=== PATIENT | female | born 1985 | race African-American/Black ===

== ENCOUNTER 2021-10-28 18:14 | Inpatient (IN) | payer SELFPAY ==
[2021-10-28] MEDS ORDERED: Ondansetron PF 4 MG/2 ML Vial IVP PRN (18:39)
[2021-10-28] MEDS ORDERED: Acetaminophen 325 MG TAB PO PRN (18:39)
[2021-10-28] MEDS: hydrALAZINE 25 MG TAB PO SCH (19:34)
[2021-10-28] MEDS: niCARdipine 25 MG in Sodium Chloride 0.9% 250 ML 250 ML IVPB PRN ×2 (19:34→23:11)
[2021-10-28] MEDS: Famotidine 20 MG TAB PO SCH (19:34)
[2021-10-28] MEDS: Metoprolol Tartrate 50 MG TAB PO SCH (19:34)
[2021-10-29] MEDS: niCARdipine 25 MG in Sodium Chloride 0.9% 250 ML 250 ML IVPB PRN ×5 (03:30→20:35)
[2021-10-29 06:33] VITALS: BMI 32.9
[2021-10-29 06:50] LABS: Hemoglobin 18.5 g/dL (12.0-15.5); Mean Corpuscular HGB CONC 33.5 g/dL (32.0-36.0); Mean Corpuscular Hemoglobin 28.4 pg (27.0-33.0); Mean Corpuscular Volume 84.9 fl (81.6-98.3); Mean Platelet Volume 11.8 fl (7.4-10.4); RBC Distribution Width 17.8 % (11.5-14.5); Red Blood Cell (RBC) Count 6.51 10x6/uL (3.90-5.03); White Blood Cell (WBC) Count 9.3 10x3/uL (3.5-10.5)
[2021-10-29 07:02] LABS: Platelet Count 174 10x3/uL (150-450)
[2021-10-29] MEDS: Enoxaparin Sodium 40 MG/0.4 ML SYRINGE SC SCH (08:53)
[2021-10-29] MEDS: Spironolactone 25 MG TAB PO SCH (09:18)
[2021-10-29] MEDS: Metoprolol Tartrate 50 MG TAB PO SCH ×2 (09:18→20:01)
[2021-10-29] MEDS: hydrALAZINE 25 MG TAB PO SCH ×3 (09:18→20:01)
[2021-10-29] MEDS: Famotidine 20 MG TAB PO SCH (09:18)
[2021-10-29] MEDS: NIFEdipine XL 30 MG TAB PO SCH (09:23)
[2021-10-29 10:00] LABS: Hemoglobin 17.1 g/dL (12.0-15.5); Mean Corpuscular HGB CONC 34.9 g/dL (32.0-36.0); Mean Corpuscular Hemoglobin 28.6 pg (27.0-33.0); Mean Corpuscular Volume 82.1 fl (81.6-98.3); Mean Platelet Volume 12.2 fl (7.4-10.4); Platelet Count 211 10x3/uL (150-450); Red Blood Cell (RBC) Count 5.97 10x6/uL (3.90-5.03); White Blood Cell (WBC) Count 15.6 10x3/uL (3.5-10.5)
[2021-10-29 10:17] LABS: Anion Gap 23 mmol/L (10-20); BUN (Urea Nitrogen) 18 mg/dL (7.0-18.7); Calc. Creatinine Clearance 54 mL/min (70-130); Calcium 9.5 mg/dL (7.8-10.44); Carbon Dioxide 15 mmol/L (22-29); Chloride 105 mmol/L (98-107); Estimated GFR 37; Glucose 148 mg/dL (70-105); Potassium 3.7 mmol/L (3.5-5.1); Sodium 139 mmol/L (136-145)
[2021-10-30] MEDS: niCARdipine 25 MG in Sodium Chloride 0.9% 250 ML 250 ML IVPB PRN ×2 (03:42→17:35)
[2021-10-30 03:57] LABS: #Monocytes 1.4 10x3/uL (0.0-1.1); #Neutrophils 12.1 10x3/uL (1.5-8.4); %Basophils 0.1 % (0.0-2.0); %Eosinophils 0.1 % (0.0-6.0); %Neutrophils 75.5 % (40.0-75.0); Hemoglobin 15.5 g/dL (12.0-15.5); Mean Corpuscular HGB CONC 34.8 g/dL (32.0-36.0); Mean Corpuscular Hemoglobin 28.4 pg (27.0-33.0); Mean Corpuscular Volume 81.7 fl (81.6-98.3); Mean Platelet Volume 11.8 fl (7.4-10.4); Platelet Count 178 10x3/uL (150-450); RBC Distribution Width 15.8 % (11.5-14.5); Red Blood Cell (RBC) Count 5.45 10x6/uL (3.90-5.03)
[2021-10-30 03:59] LABS: Anion Gap 15 mmol/L (10-20); BUN (Urea Nitrogen) 21 mg/dL (7.0-18.7); Calc. Creatinine Clearance 58 mL/min (70-130); Calcium 8.9 mg/dL (7.8-10.44); Carbon Dioxide 20 mmol/L (22-29); Chloride 105 mmol/L (98-107); Estimated GFR 40; Glucose 120 mg/dL (70-105); Potassium 3.5 mmol/L (3.5-5.1); Sodium 136 mmol/L (136-145)
[2021-10-30] MEDS ORDERED: Gadobenate Dimeglumine 529 MG/1 ML (20ML VIAL) ONE (08:00)
[2021-10-30] MEDS: Metoprolol Tartrate 50 MG TAB PO SCH ×2 (08:27→20:00)
[2021-10-30] MEDS: Enoxaparin Sodium 40 MG/0.4 ML SYRINGE SC SCH (08:27)
[2021-10-30] MEDS: Spironolactone 25 MG TAB PO SCH (08:27)
[2021-10-30] MEDS: Famotidine 20 MG TAB PO SCH (08:27)
[2021-10-30] MEDS: hydrALAZINE 25 MG TAB PO SCH ×3 (08:27→19:59)
[2021-10-30] MEDS: NIFEdipine XL 30 MG TAB PO SCH (08:32)
[2021-10-30 19:39] LABS: Bilirubin Neg (Negative); Blood, Urine Negative (Negative); Clarity Clear (Clear); Glucose, Urine (Dipstick) Normal (Negative); Ketone, Urine Negative (Negative); Leukocyte Negative (Negative); Nitrite Negative (Negative); Protein, Urine (Dipstick) 15 mg/dl (Neg-Trace); Urobilinogen Normal mg/dL (Less than 2)
[2021-10-30 19:42] LABS: Urine Culture Reflex No No
[2021-10-30 19:53] LABS: Bacteria/HPF 1+ HPF (None Seen); RBC/HPF None Seen HPF (0-3); Squamous Epithelial 0-3 HPF (0-3); WBC/HPF 0-3 HPF (0-3)
[2021-10-31] MEDS ORDERED: Labetalol HCl 100 MG/20 ML VIAL SLOW IVP PRN (00:23)
[2021-10-31] MEDS ORDERED: cloNIDine 0.1 MG TAB PO SCH (00:30)
[2021-10-31] MEDS ORDERED: ALPRAZolam 0.25 MG TAB PO SCH (01:15)
[2021-10-31 04:28] VITALS: TEMP 97.9
[2021-10-31 05:37] LABS: BUN (Urea Nitrogen) 18 mg/dL (7.0-18.7)
[2021-10-31 06:10] LABS: Anion Gap 15 mmol/L (10-20); Carbon Dioxide 22 mmol/L (22-29); Chloride 105 mmol/L (98-107); Potassium 3.3 mmol/L (3.5-5.1); Sodium 139 mmol/L (136-145)
[2021-10-31 06:11] LABS: Calc. Creatinine Clearance 65 mL/min (70-130)
[2021-10-31 06:23] LABS: Calcium 9.3 mg/dL (7.8-10.44); Glucose 100 mg/dL (70-105)
[2021-10-31 06:25] LABS: Estimated GFR 37
[2021-10-31] MEDS: Famotidine 20 MG TAB PO SCH (08:29)
[2021-10-31] MEDS: Enoxaparin Sodium 40 MG/0.4 ML SYRINGE SC SCH (08:29)
[2021-10-31] MEDS: hydrALAZINE 25 MG TAB PO SCH (08:30)
[2021-10-31] MEDS: Spironolactone 25 MG TAB PO SCH (08:30)
[2021-10-31] MEDS ORDERED: Labetalol HCl 100 MG TAB PO SCH (09:00)
[2021-10-31] MEDS ORDERED: NIFEdipine XL 90 MG TAB PO SCH (09:00)
[2021-10-31 09:04] VITALS: BP 157/103
[2021-11-04 11:12] LABS: Metanephrine,Plasma 34.8 pg/mL (0.0-88.0); Normetanephrine,Pl 228.7 pg/mL (0.0-210.1)
== END 2021-10-31 11:31 | disposition home or self-care (01) | DRG 305 ==
LOC: CSHIMCU 18:14
PROVIDERS: ADMIT Internal Medicine; ATTEND Internal Medicine
DX: I16.0 Hypertensive urgency (principal); I10 Essential (primary) hypertension; F12.90 Cannabis use, unspecified, uncomplicated; F17.210 Nicotine dependence, cigarettes, uncomplicated; Z71.6 Tobacco abuse counseling; Z71.51 Drug abuse counseling and surveillance of drug abuser; Z79.899 Other long term (current) drug therapy; Z82.49 Family history of ischemic heart disease and other diseases of the circulatory system
CPT/HCPCS: 36415; 70553; 71045; 80048; 81001; 83835; 83970; 85025; 85027; 87086; 93975; A9577; J1650; J2405; J7050